=== PATIENT | male | born 1955 | race Asian ===

== ENCOUNTER 2019-04-09 09:53 | Outpatient (CLI) | payer OTHER ==
[~2019-04-09 09:53] MED LIST: LEVO0.117 PO
[2019-04-09] MEDS ORDERED: PROTONIX20 MG PO (10:33)
== END 2019-04-09 09:57 | disposition short-term general hospital (02) ==
LOC: AMB 09:53
DX: M54.2 Cervicalgia (principal); R20.0 Anesthesia of skin; V89.0XXA Person injured in unspecified motor-vehicle accident, nontraffic, initial encounter; Y92.481 Parking lot as the place of occurrence of the external cause
CPT/HCPCS: A0425; A0429

== ENCOUNTER 2019-04-09 09:59 | Emergency (ER) | payer OTHER ==
[~2019-04-09] VITALS: Ht 180.3 cm; Wt 97.1 kg
[2019-04-09] MEDS ORDERED: PROTONIX20 MG PO (10:33)
[2019-04-09 12:05] VITALS: BP 120/77; TEMP 98.1
== END 2019-04-09 12:05 | disposition home or self-care (01) ==
LOC: ED 09:59
DX: S43.492A Other sprain of left shoulder joint, initial encounter (principal); S13.8XXA Sprain of joints and ligaments of other parts of neck, initial encounter; V49.40XA Driver injured in collision with unspecified motor vehicles in traffic accident, initial encounter; Y92.481 Parking lot as the place of occurrence of the external cause
CPT/HCPCS: 99283

== ENCOUNTER 2021-05-08 15:20 | Outpatient (CLI) | payer OTHER ==
[~2021-05-08 15:20] MED LIST changes: +PROTONIX20 MG PO
[2021-05-08 15:46] LABS: PLATELET COUNT 176 K/uL (142-355)
[2021-05-08 16:19] LABS: POTASSIUM 3.9 mmol/L (3.6-5.2)
== END 2021-05-08 23:00 | disposition home or self-care (01) ==
LOC: LABW 15:20
PROVIDERS: ATTEND Internal Medicine Gastroenterology
DX: R10.10 Upper abdominal pain, unspecified (principal)
CPT/HCPCS: 36415; 80053; 83690; 85027